=== PATIENT | female | born 1935 | race Caucasian/White ===

== ENCOUNTER 2017-01-09 23:09 | Inpatient (IN) | payer MEDICARE, OTHER ==
--- NOTE | ~2017-01-09 | IDS ---
Interim Discharge Summary [facility] [address] [place]. [address] NAME: KAYLIN VALENZUELA : 31 STATUS : ADM IN [facility]#: [id number] AGE: 81 ADM/REG DATE : 01/10/17 MR#: [id number] REPORT SERV DATE: 01/13/17 DICTATED BY: JAS COLBY DATE: 01/13/17 REPORT STATUS : Draft TRANSCRIBED BY: MODL DATE: 01/13/17 ADMISSION DATE: 01/10/2017 DISCHARGE DATE: CONSULTING PHYSICIAN: Dr. Law for outpatient manager software development, Dr. Marco Sinclair. INTERIM DIAGNOSES: 1. Acute hypoxic respiratory failure. 2. Bilateral pneumonia. 3. Acute on chronic systolic and diastolic congestive heart failure. 4. Hypertension. 5. Atrial fibrillation with AICD. 6. Mitral regurgitation. 7. Chronic kidney disease 3 with a history of left partial nephrectomy. 8. Diabetes. DIAGNOSTIC EXAMS: Echocardiogram showing mildly dilated left ventricle with severe systolic dysfunction. EF of 30%. Moderate diastolic dysfunction. Moderate left atrial enlargement. Normal right ventricular size and systolic function. Moderate MR. Mild pulmonary hypertension. Small pleural effusion. Chest x-ray showing minimal bibasilar atelectasis with trace bilateral pleural fluid. Small left pleural fluid was also seen. CAT scan of the chest showing dense patchy consolidation within the lower lobes of both lungs, right worse than the left, likely representing bilateral pneumonia. Ground-glass nodule in the medium right lung apex measuring up to 11 x 11 mm similar in appearance dating back to 05/02/2011. Suggest followup CT scan of the chest in 12 months for further evaluation. Status post partial left nephrectomy with questionable increased nodular fullness along the posterior margin of the left kidney at the nephrectomy site since 2010 exam measuring up to 14 x 27 mm. Suspect this may represent scar tissue or fat necrosis. However, suggest further evaluation and a followup, dynamic enhanced CT or MRI. Evidence of old granulomatous disease involving mediastinal and hilar lymph nodes as well as liver and spleen. Stable cardiomegaly with AICD in place. HOSPITAL COURSE: Please refer to the H and P done by Dr. Marshall Brewer dated on 01/10/2017. Briefly, this is an 81-year-old female, who comes in with cough and shortness of breath. The patient has a history of CHF, AFib, CKD, diabetes, and was exposed to her son with respiratory infection. Two days prior to admission, the patient had increase in dyspnea on exertion, productive cough, increasing weakness, decreased p.o. intake, and decreased ambulation. The patient was then brought to the emergency room and was found to have bilateral pneumonia. She was started on empiric antibiotics and hydrated, and the creatinine was initially elevated, it was slowly going down, and she looked a little bit better afterwards. However, she went into an acute respiratory failure and was found to have fluid overload. She was then placed on a Bumex drip where she got a lot of urine output out and she looked better again. The patient is now on a low-dose of Lasix and the Interim Discharge Summary [address] [place]. [address] NAME: KAYLIN VALENZUELA : 31 STATUS : ADM IN [facility]#: [id number] AGE: 81 ADM/REG DATE : 01/10/17 MR#: [id number] REPORT SERV DATE: 01/13/17 DICTATED BY: JAS COLBY. DATE: 01/13/17 REPORT STATUS : Draft TRANSCRIBED BY: PAULINA DATE: 01/13/17 family wanted Cardiology involve. Dr. Law was covering for Dr. Sinclair, saw the patient, and agreed with our management for now. The patient will be continuing the antibiotics and diuresis and hopefully she gets improved. The patient and family expressed their wishes that she is a DNR and DNI. A partner of [facility] will be following up the patient starting Saturday. ELOISE/PAULINA Jas Colby M.D. / [id number] CC: Kaylie Melgar NP
--- NOTE | ~2017-01-09 | CN ---
Consultation Report [facility] [address] [place]. [address] NAME: KAYLIN VALENZUELA : 33 STATUS : ADM IN PAT#: [id number] AGE: 81 ADM/REG DATE : 01/10/17 MR#: [id number] REPORT SERV DATE: 01/13/17 DICTATED BY: EVANGELISTA LAW DATE: 01/13/17 REPORT STATUS : Draft TRANSCRIBED BY: MODL DATE: 01/13/17 CARDIOLOGY CONSULTATION DATE OF CONSULTATION: HISTORY OF PRESENT ILLNESS: This 81-year-old white female, nonsmoker, lives with her son and family noticed that she was quite short of breath with severe cough. Workup here has revealed bilateral pneumonia, on proper therapy. She has chronic shortness of breath at home with an ejection fraction of only 30% associated with severe mitral regurgitation, not amenable to intervention. She also has chronic kidney disease being followed by Dr. Maddox, her regular modern and contemporary art curator is Dr. Marco Sinclair. She is a diabetic and has a history of tremor primarily in her left hand. Back in 2008, she had a left renal cell carcinoma, treated with partial nephrectomy. She has also had breast cancer with surgical resection. Because of poor left ventricular function, she had AICD placement and is pacing intermittently. She has had a history of sepsis due to pyelonephritis, in the past, as well. FAMILY HISTORY: Positive for heart disease. ALLERGIES: THERE ARE NO KNOWN ALLERGIES TO MEDICATIONS. SOCIAL HISTORY: She has had five children, three are still living. HOME MEDICATIONS: Have included Tylenol, albuterol, amiodarone, aspirin, Tessalon Perles, furosemide, insulin for her type 2 diabetes mellitus, lisinopril, simvastatin, spironolactone, and her warfarin. She has a history of atrial fibrillation and her INR today on warfarin is 2.2. At the present time, other than some intermittent cough, she is not overly short of breath and not orthopneic. Her edema has now gone, according to her family. She was edematous at home. She has no chest pain. Echocardiogram this admission shows an ejection fraction of only 30% with severe systolic dysfunction and moderate mitral regurgitation of a Jovita IIIB type, mild pulmonary hypertension was noted. BUN 32, creatinine 1.28. White blood cell count now 9000, hematocrit 37%, platelet count 118,000. She has had no recent stroke or TIA symptoms and has had no syncope. REVIEW OF SYSTEMS: Otherwise negative. PHYSICAL EXAMINATION: VITAL SIGNS: Show blood pressure of 110/70. HEENT: Head is normocephalic. Eyes, PERRLA. Nose has no epistaxis. SKIN: Clear of ulcerations. She does have acrocyanosis of her fingertips and toes with a saturation on oxygen of 90%. Consultation Report [address] [place]. [address] NAME: KAYLIN VALENZUELA : 33 STATUS : ADM IN PAT#: [id number] AGE: 81 ADM/REG DATE : 01/10/17 MR#: [id number] REPORT SERV DATE: 01/13/17 DICTATED BY: EVANGELISTA LAW DATE: 01/13/17 REPORT STATUS : Draft TRANSCRIBED BY: PAULINA DATE: 01/13/17 NECK: Supple. CHEST: Has a few rales in the right base. Left lung is fairly clear. HEART: Has slightly irregular rhythm. Variable S1. Normal S2. No S3 gallop is heard. There is a grade 1/6 systolic murmur at the lower left sternal border. ABDOMEN: Overweight. No hepatosplenomegaly. EXTREMITIES: Has no clubbing, edema, or cyanosis. NEUROLOGIC: Intact. She is oriented to time, place, and person. DNR status is noted. CLINICAL IMPRESSIONS: 1. Bilateral pneumonia. 2. Mitral regurgitation-at least moderate. 3. Poor left ventricular systolic function with an ejection fraction in the 30% range and poor perfusion. 4. DO NOT RESUSCITATE status noted. 5. History of chronic kidney disease. 6. Status post left partial nephrectomy for cancer. 7. History of breast cancer. 8. Status post AICD placement. 9. Atrial fibrillation with INR therapeutic. RECOMMENDATIONS: 1. Agree with management as outlined by the Hospitalist Service. 2. I will notify Dr. Sinclair of her admission in the morning. Her prognosis is quite poor. RB/PAULINA Evangelista Law M.D. / [id number] CC: Kaylie Melgar VICKY L
--- NOTE | ~2017-01-09 | HP ---
History And Physical [address] [place]. [address] NAME: KAYLIN VALENZUELA : 33 STATUS : ADM Tonja PAT#: [id number] AGE: 81 ADM/REG DATE : 01/10/17 MR#: [id number] REPORT SERV DATE: 01/10/17 DICTATED BY: ALEXSANDER GALLARDO DATE: 01/10/17 REPORT STATUS : Draft TRANSCRIBED BY: MODL DATE: 01/10/17 DATE OF ADMISSION: 01/10/2017 CHIEF COMPLAINT: An 81-year-old female, presenting with cough and shortness of breath. HISTORY OF PRESENT ILLNESS: The patient's history was obtained through careful interview with the patient and daughter, Lindsey, coupled with review of [facility] and [facility] medical records. The patient states that for "a couple days" she has been having an increasing cough that has been nonproductive and shortness of breath characterized by dyspnea on exertion. It turns out that her son was sick with a similar illness about a week ago, and it resolved within a few days, but now the patient's illness has only worsened over these last few days. She describes her cough is worse at night making it difficult to sleep, but she denies any specific orthopnea. She has had increasing weakness. She has had subjective fevers and chills. Her abdomen has been sore because of coughing, but otherwise there are no pain complaints. No chest pain. No headache. No back pain. REVIEW OF SYSTEMS: Otherwise, a 14-point review of systems was obtained and was negative. PAST MEDICAL HISTORY: 1. Atrial fibrillation. 2. Chronic kidney disease, stage 3. Baseline creatinine of 1.3. Followed by Dr. Maddox. 3. Systolic congestive heart failure. Ejection fraction 30%. Followed by Dr. Marco Sinclair, accounts adjustable clerk. 4. Hypertension. 5. Diabetes. 6. Left hand tremor. 7. Left renal cell carcinoma status post surgery in 2008. 8. Breast cancer in 2014 status post surgical resection. 9. AICD placement. 10.Nephrolithiasis with stent placement under the care Dr. Hunter. 11.Mitral regurgitation, but declined surgery. 12.Pyelonephritis with sepsis in 2008. PAST SURGICAL HISTORY: 1. Partial left nephrectomy for renal cell carcinoma. 2. Right breast lumpectomy. 3. Right parathyroidectomy. 4. AICD placement. History And Physical [address] [place]. [address] NAME: KAYLIN VALENZUELA : 33 STATUS : ADM Tonja PAT#: [id number] AGE: 81 ADM/REG DATE : 01/10/17 MR#: [id number] REPORT SERV DATE: 01/10/17 DICTATED BY: ALEXSANDER GALLARDO DATE: 01/10/17 REPORT STATUS : Draft TRANSCRIBED BY: PAULINA DATE: 01/10/17 ALLERGIES: NO KNOWN DRUG ALLERGIES. SOCIAL HISTORY: No tobacco abuse. No alcohol abuse. Lives with son. Has been a for 18 years. Has a total of three children. FAMILY HISTORY: Mother with heart disease, of breast cancer at 42 years of age. Father in an accident. Sister of breast cancer at 58 years of age. She has two sons of Duchenne's muscular dystrophy. CURRENT MEDICATIONS: 1. Tylenol. 2. Albuterol inhaler. 3. Amiodarone 100 mg p.o. daily. 4. Aspirin 81 mg p.o. daily. 5. Tessalon Perles. 6. Calcium. 7. Vitamin D. 8. Lasix 20 mg p.o. daily. 9. Humalog 75/25, 25 units subcutaneous at breakfast and 14 units at supper. 10.Humalog 5 units before each meal. 11.Lisinopril 5 mg p.o. daily. 12.Zocor 20 mg p.o. daily. 13.Aldactone 25 mg p.o. daily. 14.Coumadin 3 mg p.o. daily. PHYSICAL EXAMINATION: VITAL SIGNS: Temperature 100.7, pulse 81, blood pressure 145/42, respiratory rate 19, and O2 saturation 93% on room air. GENERAL: An ill-appearing female, in evidence of some distress secondary to cough and shortness of breath. HEENT: Pupils equal, round, and reactive to light. No conjunctival pallor. No scleral icterus. Nares are patent. Oropharynx is clear of obstruction. Moist mucous membranes. NECK: Trachea midline. No thyromegaly. LYMPH: No cervical lymphadenopathy. No supraclavicular lymphadenopathy. RESPIRATORY: The patient has definite wet rales at the base of lungs. No significant wheezes. No upper respiratory rhonchi. A labored respiratory effort. CARDIOVASCULAR: Regular rate and rhythm. No murmurs, rubs, or gallops. No current extremity edema is appreciated though. ABDOMEN: Soft, nontender, and nondistended. Normal bowel sounds auscultated throughout. No hepatosplenomegaly. DERMATOLOGICAL: Warm and dry extremities. No pallor. No cyanosis. PSYCHIATRIC: Blunted affect. Claims to be in a good mood. Alert and oriented x3. LABORATORY DATA: Brain natriuretic peptide 337. Procalcitonin 0.68. Lactic acid 1.3. Influenza negative. History And Physical [address] [address] NAME: KAYLIN VALENZUELA : 31 STATUS : ADM Tonja PAT#: [id number] AGE: 81 ADM/REG DATE : 01/10/17 MR#: [id number] REPORT SERV DATE: 01/10/17 DICTATED BY: ALEXSANDER GALLARDO DATE: 01/10/17 REPORT STATUS : Draft TRANSCRIBED BY: MODKaron DATE: 01/10/17 Liver enzymes within normal limits. Urinalysis negative for infection. White blood cell count 9.9, hemoglobin 13, hematocrit 39, and platelets 112. Sodium 138, potassium 4.5, chloride 106, bicarb 25, BUN 27, creatinine 1.68, and glucose 190. STUDIES: Chest x-ray by my own evaluation shows possible left lower lung disease?, possible mild pulmonary edema changes, but it is difficult to interpret x-ray and there may be no significant abnormalities at all ? ASSESSMENT AND PLAN: 1. Acute bronchitis versus pneumonia. Fever of 100.7 with borderline procalcitonin. I would like to try IV antibiotics for now. Check a CT scan of the chest, check procalcitonin or follow procalcitonin. 2. Systolic congestive heart failure exacerbation. Significant wet rales by exam. Check a CT scan of the chest. Try IV diuretic. Recheck an echocardiogram with history of ejection fraction 30%. History of mitral regurgitation as well. 3. Chronic kidney disease, stage 3. Baseline creatinine of 1.3. 4. Diabetes. Check hemoglobin A1c. Place on sliding scale insulin. 5. Automatic implantable cardioverter-defibrillator. We will interrogate. RANJANA/PAULINA Alexsander Gallardo M.D. / [id number] CC: Kaylie Melgar NP William Warren, M.D.
--- NOTE | ~2017-01-09 | DS ---
Discharge Summary [address] [place]. [address] NAME: KAYLIN VALENZUELA : 33 STATUS : DIS IN PAT#: [id number] AGE: 81 ADM/REG DATE : 01/10/17 MR#: [id number] REPORT SERV DATE: 01/20/17 DICTATED BY: RICHARDSON MISTRY DATE: 01/20/17 REPORT STATUS : Draft TRANSCRIBED BY: MODL DATE: 01/20/17 ADMISSION DATE: 01/10/2017 DISCHARGE DATE: 01/20/2017 DISCHARGE DIAGNOSES: 1. Bilateral pneumonia. 2. Acute hypoxic respiratory failure. 3. Acute on chronic systolic and diastolic heart failure. Ejection fraction of 30%. Some moderate mitral regurgitation, moderate diastolic dysfunction, and moderate pulmonary hypertension. 4. Diabetes type 2. Hemoglobin A1c of 7.9. 5. Chronic atrial fibrillation, on chronic Coumadin therapy. Most recent INR 2.6. 6. Debility and falls. 7. Hypoalbuminemia, most recently 1.9. 8. History of hypertension. 9. History of chronic kidney disease stage 3. 10.History of AICD. DISCHARGE MEDICATIONS: Aspirin 81 mg daily; Pacerone 100 mg daily; Tessalon 100 mg every eight hours p.r.n. for cough; calcium with vitamin D 600 mg three tabs a day each with meals; Colace 100 mg twice a day; Humalog 75/25, 25 units at breakfast and Humalog 75/25, 14 units at supper; Humalog insulin lispro 5 units before lunch; lisinopril 5 mg daily; Remeron 15 mg at bedtime; Zocor 20 mg at bedtime; Aldactone 25 mg daily; torsemide 20 mg daily; Coumadin 3 mg at bedtime; Tylenol 1000 mg daily p.r.n. for headache; albuterol; ProAir inhaler two puffs p.r.n. for shortness of breath every four to six hours. HISTORY OF PRESENT ILLNESS: This is a pleasant 81-year-old white female who presented with cough and shortness of breath. Please see initial H and P of Dr. Marshall Brewer. This patient was admitted to the Hospitalist Service for further evaluation and treatment. She was started on empiric antibiotic therapy. Lab work was ordered and followed and also given IV diuresis. Please also see the interim discharge summary of Dr. Nicole as this discharge summary will cover the dates of 01/14/2017 until 01/20/2017. HOSPITAL COURSE: The patient continued on her antibiotic therapy, continued on her diuresis, symptomatically continued to improve, shortness of breath began to get better as well. Her creatinine remained stable with increasing of her diuresis; however, in review of all her labs, it was noted she was significantly low on her albumin, so a switch was made from Lasix to torsemide for overall better diuresis. She was able to be switched to p.o. antibiotics as her Rocephin and Zithromax were stopped on 01/16/2017. Her chest x-rays improved as well. She was seen by Physical Therapy and Occupational Therapy who recommended inpatient rehab, and she was chosen for [facility]. Her O2 has been weaned. She has been given Ensure with her trays, and Remeron has been added to her overall regimen to help with appetite stimulation. The patient continued to improve, was felt safe for discharge to [facility] on 01/20/2017 with the above medication regimen. She will need to have her INR rechecked in the a.m. I have updated the patient and patient's daughter at bedside. Questions were answered extensively. They are in agreement with the overall plan going Discharge Summary [address] [address] NAME: KAYLIN VALENZUELA : 31 STATUS : DIS IN PAT#: [id number] AGE: 81 ADM/REG DATE : 01/10/17 MR#: [id number] REPORT SERV DATE: 01/20/17 DICTATED BY: RICHARDSON MISTRY DATE: 01/20/17 REPORT STATUS : Draft TRANSCRIBED BY: MODKaron DATE: 01/20/17 forward. Please note, greater than 30 minutes were spent on this discharge for medication teaching, discharge planning, and further disposition. ALEX/PAULINA Richardson Mistry NP / [id number] CC: Kaylie Melgar VICKY L
[~2017-01-09 23:09] MED LIST: ACET500CAP PO; ASA; ASAB PO; C2 PO; C25 PO; C5 PO; CEFT5 PO; CORDARONE PO; COREG12 PO; COREG3 PO; COUMADIN3 MG PO; INSNOV7030 SC; IRON325 MG PO; L20 PO; L40 PO; NOVOLOG SC; NOVOLOG SQ; NOVOLOGMIX SC; NOVOPEN SC; NOVOPENMIX SC; PACERONE200 MG PO; PRIN5 PO; SPIRO25 PO; VITAMIN D31000 UNIT PO; VITD PO; ZOCOR20 PO; ZOCOR40 PO
[2017-01-10 00:11] LABS: BASOPHILS 0.2 %; BASOPHILS ABSOLUTE 0.02 10/3/uL (0.0-0.16); EOSINOPHILS 0 %; ER CBC TAT 0 Hrs 00 Mins; HEMATOCRIT 38.9 % (36.0-48.0); HEMOGLOBIN 12.9 g/dL (12.0-16.0); IMMATURE GRANULOCYTES 0.2 %; IMMATURE GRANULOCYTES ABSOLUTE 0.02 10/3/uL (0.0-0.11); LYMPHOCYTES ABSOLUTE 1.09 10/3/uL (0.67-4.30); MANUAL DIFF NO %; MEAN CORPUS HGB CONC 33.2 g/dL (32.0-36.0); MEAN CORPUSCULAR HEMOGLOB 28.5 pg (26.0-34.0); MEAN CORPUSCULAR VOLUME 85.9 fL (80-100); MEAN PLATELET VOLUME 11.6 fL (9.2-13.0); MONOCYTES 11.4 %; MONOCYTES ABSOLUTE 1.13 10/3/uL (0.21-1.20); NEUTROPHILS 77.2 %; NEUTROPHILS ABSOLUTE 7.63 10/3/uL (2.02-8.40); PLATELET COUNT 112 10/3/uL (150-400); RED CELL COUNT 4.53 10/6/uL (4.0-5.6); WHITE BLOOD CELLS 9.9 10/3/uL (4.5-10.5)
[2017-01-10 00:25] LABS: INFLUENZA A SCREEN NEGATIVE (NEGATIVE); INFLUENZA B SCREEN NEGATIVE (NEGATIVE)
[2017-01-10 00:37] LABS: BUN (BLOOD UREA NITROGEN) 27 MG/DL (6-23); CHLORIDE, SERUM 106 MMOL/L (96-112); CO2 (CARBON DIOXIDE) 25 MMOL/L (24-34); CREATININE 1.68 MG/DL (0.55-1.02); GFR AFRICAN AMERICAN 32 ML/MIN (>=60); GFR NON AFRICAN AMERICAN 28 ML/MIN (>=60); POTASSIUM, SERUM 4.5 MMOL/L (3.5-5.3); SODIUM, SERUM 138 MMOL/L (135-148)
[2017-01-10 00:38] LABS: A/G RATIO 0.8 (0.7-1.9); ALBUMIN 3.1 G/DL (3.5-5.0); ALKALINE PHOSPHATASE 58 U/L (45-117); CALCIUM, SERUM 8.8 MG/DL (8.5-10.4); GLOBULIN 3.9 G/DL (2.5-4.1); GLUCOSE, SERUM 190 MG/DL (60-99); LACTATE 1.3 MMOL/L (0.3-2.4); SGOT(AST) 28 U/L (5-40); SGPT(ALT) 25 U/L (5-65); TOTAL BILIRUBIN 0.7 MG/DL (0-1.2)
[2017-01-10 02:12] LABS: PROCALCITONIN 0.68 ng/mL (<0.5)
[2017-01-10 02:35] LABS: ASCORBIC ACID (UR NOT ORDER) NEG (NEG); BILIRUBIN, URINE NEGATIVE (NEG); ER URINALYSIS TAT 0 Hrs 00 Mins; KETONE, URINE TRACE MG/DL (NEG); LEUKOCYTE ESTERASE(NOT OR NEG (NEG); NITRITE (URINE) NEG (NEG); WBC (NOT ORDERED) (RFLEX) 3 (0-5)
[2017-01-10] MEDS ORDERED: L20 PO (02:49)
[2017-01-10] MEDS ORDERED: SPIRO25 PO (02:49)
[2017-01-10] MEDS ORDERED: PRIN5 PO (02:49)
[2017-01-10] MEDS ORDERED: HUMAMIXPEN SC ×2 (02:49→02:52)
[2017-01-10] MEDS ORDERED: PACERONE100 MG PO (02:50)
[2017-01-10] MEDS ORDERED: ASAB PO (02:50)
[2017-01-10] MEDS ORDERED: CALTRA600D PO (02:50)
[2017-01-10] MEDS ORDERED: PROAIR HFA INH (02:50)
[2017-01-10] MEDS ORDERED: HUMALOGPEN SC (02:51)
[2017-01-10] MEDS ORDERED: ACET500CAP PO (02:51)
[2017-01-10] MEDS ORDERED: ZOCOR20 PO (02:52)
[2017-01-10] MEDS ORDERED: COUMADIN3 MG PO (02:52)
[2017-01-10] MEDS ORDERED: TESS PO (02:55)
[2017-01-10 06:36] LABS: INTERNATIONAL NORMAL RATI 1.8 UNITS (-)
[2017-01-10 06:37] LABS: PROTIME (NOT ORD) 20.3 SEC (12.0-14.5)
[2017-01-11 05:26] LABS: PROTIME (NOT ORD) 22.5 SEC (12.0-14.5)
[2017-01-11 05:31] LABS: BUN (BLOOD UREA NITROGEN) 28 MG/DL (6-23); CALCIUM, SERUM 8.2 MG/DL (8.5-10.4); CHLORIDE, SERUM 111 MMOL/L (96-112); CO2 (CARBON DIOXIDE) 21 MMOL/L (24-34); CREATININE 1.31 MG/DL (0.55-1.02); GFR AFRICAN AMERICAN 44 ML/MIN (>=60); GFR NON AFRICAN AMERICAN 38 ML/MIN (>=60); POTASSIUM, SERUM 4.5 MMOL/L (3.5-5.3); SODIUM, SERUM 141 MMOL/L (135-148)
[2017-01-11 05:52] LABS: GLUCOSE, SERUM 138 MG/DL (60-99)
[2017-01-11 06:29] LABS: BASOPHILS 0.3 %; BASOPHILS ABSOLUTE 0.02 10/3/uL (0.0-0.16); EOSINOPHILS 0.1 %; EOSINOPHILS ABSOLUTE 0.01 10/3/uL (0.0-0.53); HEMATOCRIT 35.2 % (36.0-48.0); HEMOGLOBIN 11.7 g/dL (12.0-16.0); LYMPHOCYTES 16.5 %; MANUAL DIFF NO %; MEAN CORPUS HGB CONC 33.2 g/dL (32.0-36.0); MEAN CORPUSCULAR HEMOGLOB 28.2 pg (26.0-34.0); MEAN CORPUSCULAR VOLUME 84.8 fL (80-100); MEAN PLATELET VOLUME 12.4 fL (9.2-13.0); MONOCYTES 4.8 %; MONOCYTES ABSOLUTE 0.35 10/3/uL (0.21-1.20); NEUTROPHILS 78.3 %; NEUTROPHILS ABSOLUTE 5.69 10/3/uL (2.02-8.40); PLATELET COUNT 103 10/3/uL (150-400); RBC DISTRIBUTION WIDTH 15.4 % (12.0-16.0); RED CELL COUNT 4.15 10/6/uL (4.0-5.6); WHITE BLOOD CELLS 7.3 10/3/uL (4.5-10.5)
[2017-01-11 19:28] LABS: INSTRUMENT SERIAL # 11843
[2017-01-11 19:29] LABS: ALLENS TEST Pos; BE (BASE EXCESS) -7.9 MEQ/L (0 +/- 2.5); CARBOXYHEMOGLOBIN 0.3 % (0-3); DEVICE NRB; HCO3 (ACTUAL BICARBONATE) 16.9 MEQ/L (23-27); HEMOBLOGIN CONTENT 13.3 G/DL (12-16); METHEMOGLOBIN 0.4 % (0-3); O2 CONTENT 18.3 VOL% (18-24); OPERATOR ID 33214; PCO2 (CO2 TENSION) 33 MMHG (35-45); PO2 (O2 TENSION) 115 MMHG (79-93); SAMPLE Arterial; pH 7.33 (7.37-7.43)
[2017-01-12 05:47] LABS: BASOPHILS 0.2 %; BASOPHILS ABSOLUTE 0.02 10/3/uL (0.0-0.16); EOSINOPHILS 0 %; HEMATOCRIT 37.4 % (36.0-48.0); HEMOGLOBIN 12.2 g/dL (12.0-16.0); IMMATURE GRANULOCYTES 0.2 %; IMMATURE GRANULOCYTES ABSOLUTE 0.02 10/3/uL (0.0-0.11); LYMPHOCYTES 10.6 %; LYMPHOCYTES ABSOLUTE 0.98 10/3/uL (0.67-4.30); MEAN CORPUS HGB CONC 32.6 g/dL (32.0-36.0); MEAN CORPUSCULAR HEMOGLOB 28.3 pg (26.0-34.0); MEAN CORPUSCULAR VOLUME 86.8 fL (80-100); MEAN PLATELET VOLUME 12.5 fL (9.2-13.0); MONOCYTES 6.8 %; MONOCYTES ABSOLUTE 0.63 10/3/uL (0.21-1.20); NEUTROPHILS 82.2 %; NEUTROPHILS ABSOLUTE 7.62 10/3/uL (2.02-8.40); PLATELET COUNT 118 10/3/uL (150-400); RBC DISTRIBUTION WIDTH 15.4 % (12.0-16.0); RED CELL COUNT 4.31 10/6/uL (4.0-5.6); WHITE BLOOD CELLS 9.3 10/3/uL (4.5-10.5)
[2017-01-12 05:49] LABS: MANUAL DIFF NO %
[2017-01-12 05:51] LABS: INTERNATIONAL NORMAL RATI 2.2 UNITS (-); PROTIME (NOT ORD) 23.9 SEC (12.0-14.5)
[2017-01-12 05:59] LABS: BUN (BLOOD UREA NITROGEN) 32 MG/DL (6-23); CALCIUM, SERUM 8.7 MG/DL (8.5-10.4); CHLORIDE, SERUM 108 MMOL/L (96-112); CO2 (CARBON DIOXIDE) 19 MMOL/L (24-34); CREATININE 1.28 MG/DL (0.55-1.02); GFR AFRICAN AMERICAN 45 ML/MIN (>=60); GFR NON AFRICAN AMERICAN 39 ML/MIN (>=60); GLUCOSE, SERUM 211 MG/DL (60-99); POTASSIUM, SERUM 5.3 MMOL/L (3.5-5.3); SODIUM, SERUM 138 MMOL/L (135-148)
[2017-01-12 07:52] LABS: PLATELET ESTIMATE SLT DEC (ADEQUATE)
[2017-01-12 07:53] LABS: POLYCHROMASIA 1+ (2-5/OIF) (0-1/OIF)
[2017-01-13 07:25] LABS: BASOPHILS 0.2 %; BASOPHILS ABSOLUTE 0.02 10/3/uL (0.0-0.16); EOSINOPHILS 0 %; HEMATOCRIT 35.5 % (36.0-48.0); HEMOGLOBIN 11.8 g/dL (12.0-16.0); IMMATURE GRANULOCYTES 0.3 %; IMMATURE GRANULOCYTES ABSOLUTE 0.03 10/3/uL (0.0-0.11); INTERNATIONAL NORMAL RATI 2.4 UNITS (-); LYMPHOCYTES 12.3 %; LYMPHOCYTES ABSOLUTE 1.29 10/3/uL (0.67-4.30); MANUAL DIFF NO %; MEAN CORPUS HGB CONC 33.2 g/dL (32.0-36.0); MEAN CORPUSCULAR HEMOGLOB 28.4 pg (26.0-34.0); MEAN CORPUSCULAR VOLUME 85.3 fL (80-100); MEAN PLATELET VOLUME 11.9 fL (9.2-13.0); MONOCYTES 11.7 %; MONOCYTES ABSOLUTE 1.23 10/3/uL (0.21-1.20); NEUTROPHILS 75.5 %; NEUTROPHILS ABSOLUTE 7.93 10/3/uL (2.02-8.40); PLATELET COUNT 146 10/3/uL (150-400); PROTIME (NOT ORD) 26.3 SEC (12.0-14.5); RBC DISTRIBUTION WIDTH 15.5 % (12.0-16.0); RED CELL COUNT 4.16 10/6/uL (4.0-5.6); WHITE BLOOD CELLS 10.5 10/3/uL (4.5-10.5)
[2017-01-13 07:37] LABS: BUN (BLOOD UREA NITROGEN) 42 MG/DL (6-23); CALCIUM, SERUM 8.5 MG/DL (8.5-10.4); CHLORIDE, SERUM 108 MMOL/L (96-112); CO2 (CARBON DIOXIDE) 23 MMOL/L (24-34); CREATININE 1.35 MG/DL (0.55-1.02); GFR AFRICAN AMERICAN 42 ML/MIN (>=60); GFR NON AFRICAN AMERICAN 36 ML/MIN (>=60); GLUCOSE, SERUM 176 MG/DL (60-99); POTASSIUM, SERUM 4.6 MMOL/L (3.5-5.3); SODIUM, SERUM 139 MMOL/L (135-148)
[2017-01-14 05:56] LABS: INTERNATIONAL NORMAL RATI 3.4 UNITS (-)
[2017-01-14 05:58] LABS: PROTIME (NOT ORD) 34.3 SEC (12.0-14.5)
[2017-01-14 06:01] LABS: BUN (BLOOD UREA NITROGEN) 41 MG/DL (6-23); CALCIUM, SERUM 8.5 MG/DL (8.5-10.4); CHLORIDE, SERUM 110 MMOL/L (96-112); CO2 (CARBON DIOXIDE) 25 MMOL/L (24-34); CREATININE 1.23 MG/DL (0.55-1.02); GFR AFRICAN AMERICAN 47 ML/MIN (>=60); GFR NON AFRICAN AMERICAN 41 ML/MIN (>=60); GLUCOSE, SERUM 158 MG/DL (60-99); POTASSIUM, SERUM 4.7 MMOL/L (3.5-5.3); SODIUM, SERUM 141 MMOL/L (135-148)
[2017-01-15 05:05] LABS: INTERNATIONAL NORMAL RATI 3.7 UNITS (-)
[2017-01-15 05:08] LABS: BUN (BLOOD UREA NITROGEN) 41 MG/DL (6-23); CALCIUM, SERUM 8.6 MG/DL (8.5-10.4); CHLORIDE, SERUM 108 MMOL/L (96-112); CO2 (CARBON DIOXIDE) 28 MMOL/L (24-34); CREATININE 1.14 MG/DL (0.55-1.02); GFR AFRICAN AMERICAN 51 ML/MIN (>=60); GFR NON AFRICAN AMERICAN 44 ML/MIN (>=60); GLUCOSE, SERUM 165 MG/DL (60-99); POTASSIUM, SERUM 4.6 MMOL/L (3.5-5.3); SODIUM, SERUM 140 MMOL/L (135-148)
[2017-01-15 05:30] LABS: BASOPHILS 0.2 %; BASOPHILS ABSOLUTE 0.02 10/3/uL (0.0-0.16); EOSINOPHILS 0.3 %; EOSINOPHILS ABSOLUTE 0.03 10/3/uL (0.0-0.53); HEMATOCRIT 35.7 % (36.0-48.0); HEMOGLOBIN 11.5 g/dL (12.0-16.0); IMMATURE GRANULOCYTES 0.8 %; IMMATURE GRANULOCYTES ABSOLUTE 0.07 10/3/uL (0.0-0.11); LYMPHOCYTES 15.3 %; LYMPHOCYTES ABSOLUTE 1.39 10/3/uL (0.67-4.30); MEAN CORPUS HGB CONC 32.2 g/dL (32.0-36.0); MEAN CORPUSCULAR HEMOGLOB 28.1 pg (26.0-34.0); MEAN CORPUSCULAR VOLUME 87.3 fL (80-100); MEAN PLATELET VOLUME 12.2 fL (9.2-13.0); MONOCYTES 12.1 %; NEUTROPHILS 71.3 %; NEUTROPHILS ABSOLUTE 6.47 10/3/uL (2.02-8.40); RBC DISTRIBUTION WIDTH 15.5 % (12.0-16.0); RED CELL COUNT 4.09 10/6/uL (4.0-5.6); WHITE BLOOD CELLS 9.1 10/3/uL (4.5-10.5)
[2017-01-15 05:34] LABS: MANUAL DIFF NO %; PLATELET COUNT 195 10/3/uL (150-400)
[2017-01-16 05:42] LABS: PROTIME (NOT ORD) 38.7 SEC (12.0-14.5)
[2017-01-16 05:56] LABS: BUN (BLOOD UREA NITROGEN) 39 MG/DL (6-23); CALCIUM, SERUM 8.3 MG/DL (8.5-10.4); CHLORIDE, SERUM 107 MMOL/L (96-112); CO2 (CARBON DIOXIDE) 31 MMOL/L (24-34); CREATININE 1.17 MG/DL (0.55-1.02); GFR AFRICAN AMERICAN 50 ML/MIN (>=60); GFR NON AFRICAN AMERICAN 43 ML/MIN (>=60); GLUCOSE, SERUM 157 MG/DL (60-99); SODIUM, SERUM 143 MMOL/L (135-148)
[2017-01-17 06:52] LABS: CALCIUM, SERUM 8.2 MG/DL (8.5-10.4); CHLORIDE, SERUM 105 MMOL/L (96-112); CO2 (CARBON DIOXIDE) 30 MMOL/L (24-34); CREATININE 1.12 MG/DL (0.55-1.02); GFR AFRICAN AMERICAN 53 ML/MIN (>=60); GFR NON AFRICAN AMERICAN 45 ML/MIN (>=60); INTERNATIONAL NORMAL RATI 4.5 UNITS (-); POTASSIUM, SERUM 3.9 MMOL/L (3.5-5.3); SODIUM, SERUM 143 MMOL/L (135-148)
[2017-01-17 06:53] LABS: PROTIME (NOT ORD) 42.3 SEC (12.0-14.5)
[2017-01-17 06:55] LABS: BUN (BLOOD UREA NITROGEN) 35 MG/DL (6-23); GLUCOSE, SERUM 209 MG/DL (60-99)
[2017-01-18 05:04] LABS: BASOPHILS 0.6 %; BASOPHILS ABSOLUTE 0.04 10/3/uL (0.0-0.16); EOSINOPHILS 3.4 %; EOSINOPHILS ABSOLUTE 0.23 10/3/uL (0.0-0.53); HEMATOCRIT 34.6 % (36.0-48.0); HEMOGLOBIN 11.2 g/dL (12.0-16.0); IMMATURE GRANULOCYTES 0.6 %; IMMATURE GRANULOCYTES ABSOLUTE 0.04 10/3/uL (0.0-0.11); LYMPHOCYTES 15.6 %; LYMPHOCYTES ABSOLUTE 1.06 10/3/uL (0.67-4.30); MEAN CORPUS HGB CONC 32.4 g/dL (32.0-36.0); MEAN CORPUSCULAR VOLUME 89.6 fL (80-100); MEAN PLATELET VOLUME 11.2 fL (9.2-13.0); MONOCYTES 8.7 %; MONOCYTES ABSOLUTE 0.59 10/3/uL (0.21-1.20); NEUTROPHILS 71.1 %; NEUTROPHILS ABSOLUTE 4.85 10/3/uL (2.02-8.40); PLATELET COUNT 245 10/3/uL (150-400); RBC DISTRIBUTION WIDTH 15.5 % (12.0-16.0); RED CELL COUNT 3.86 10/6/uL (4.0-5.6); WHITE BLOOD CELLS 6.8 10/3/uL (4.5-10.5)
[2017-01-18 05:05] LABS: INTERNATIONAL NORMAL RATI 4.7 UNITS (-); MANUAL DIFF NO %
[2017-01-18 05:06] LABS: PROTIME (NOT ORD) 43.6 SEC (12.0-14.5)
[2017-01-18 05:14] LABS: CALCIUM, SERUM 7.8 MG/DL (8.5-10.4); CHLORIDE, SERUM 109 MMOL/L (96-112); GFR AFRICAN AMERICAN 60 ML/MIN (>=60); GFR NON AFRICAN AMERICAN 52 ML/MIN (>=60); PHOSPHORUS, SERUM 2.2 MG/DL (2.5-4.5); POTASSIUM, SERUM 4.1 MMOL/L (3.5-5.3); SODIUM, SERUM 140 MMOL/L (135-148)
[2017-01-18 05:17] LABS: ALBUMIN 1.7 G/DL (3.5-5.0); BUN (BLOOD UREA NITROGEN) 31 MG/DL (6-23); CO2 (CARBON DIOXIDE) 25 MMOL/L (24-34); GLUCOSE, SERUM 133 MG/DL (60-99)
[2017-01-19 05:20] LABS: BASOPHILS 0.3 %; BASOPHILS ABSOLUTE 0.02 10/3/uL (0.0-0.16); EOSINOPHILS 3.2 %; EOSINOPHILS ABSOLUTE 0.25 10/3/uL (0.0-0.53); HEMOGLOBIN 11.2 g/dL (12.0-16.0); IMMATURE GRANULOCYTES 0.8 %; IMMATURE GRANULOCYTES ABSOLUTE 0.06 10/3/uL (0.0-0.11); LYMPHOCYTES 16.5 %; LYMPHOCYTES ABSOLUTE 1.28 10/3/uL (0.67-4.30); MEAN CORPUSCULAR HEMOGLOB 27.9 pg (26.0-34.0); MEAN CORPUSCULAR VOLUME 87.3 fL (80-100); MEAN PLATELET VOLUME 10.8 fL (9.2-13.0); MONOCYTES 8.6 %; MONOCYTES ABSOLUTE 0.67 10/3/uL (0.21-1.20); NEUTROPHILS 70.6 %; NEUTROPHILS ABSOLUTE 5.47 10/3/uL (2.02-8.40); PLATELET COUNT 309 10/3/uL (150-400); RBC DISTRIBUTION WIDTH 15.4 % (12.0-16.0); RED CELL COUNT 4.01 10/6/uL (4.0-5.6); WHITE BLOOD CELLS 7.8 10/3/uL (4.5-10.5)
[2017-01-19 05:23] LABS: MANUAL DIFF NO %
[2017-01-19 05:26] LABS: INTERNATIONAL NORMAL RATI 4.5 UNITS (-)
[2017-01-19 05:27] LABS: PROTIME (NOT ORD) 42.3 SEC (12.0-14.5)
[2017-01-19 05:32] LABS: ALBUMIN 1.9 G/DL (3.5-5.0); CALCIUM, SERUM 8.4 MG/DL (8.5-10.4); CHLORIDE, SERUM 104 MMOL/L (96-112); CREATININE 0.98 MG/DL (0.55-1.02); GFR AFRICAN AMERICAN 62 ML/MIN (>=60); GFR NON AFRICAN AMERICAN 53 ML/MIN (>=60); PHOSPHORUS, SERUM 2.4 MG/DL (2.5-4.5); POTASSIUM, SERUM 3.9 MMOL/L (3.5-5.3); SODIUM, SERUM 142 MMOL/L (135-148)
[2017-01-19 05:33] LABS: BUN (BLOOD UREA NITROGEN) 25 MG/DL (6-23); CO2 (CARBON DIOXIDE) 31 MMOL/L (24-34); GLUCOSE, SERUM 160 MG/DL (60-99)
[2017-01-20 05:09] LABS: BASOPHILS 0.3 %; BASOPHILS ABSOLUTE 0.02 10/3/uL (0.0-0.16); EOSINOPHILS 3.5 %; EOSINOPHILS ABSOLUTE 0.23 10/3/uL (0.0-0.53); HEMATOCRIT 35.2 % (36.0-48.0); HEMOGLOBIN 11.5 g/dL (12.0-16.0); IMMATURE GRANULOCYTES 1.1 %; IMMATURE GRANULOCYTES ABSOLUTE 0.07 10/3/uL (0.0-0.11); LYMPHOCYTES 22.6 %; LYMPHOCYTES ABSOLUTE 1.48 10/3/uL (0.67-4.30); MEAN CORPUS HGB CONC 32.7 g/dL (32.0-36.0); MEAN CORPUSCULAR HEMOGLOB 28.4 pg (26.0-34.0); MEAN CORPUSCULAR VOLUME 86.9 fL (80-100); MEAN PLATELET VOLUME 10.7 fL (9.2-13.0); MONOCYTES 9.9 %; MONOCYTES ABSOLUTE 0.65 10/3/uL (0.21-1.20); NEUTROPHILS 62.6 %; NEUTROPHILS ABSOLUTE 4.11 10/3/uL (2.02-8.40); PLATELET COUNT 296 10/3/uL (150-400); RBC DISTRIBUTION WIDTH 15.5 % (12.0-16.0); RED CELL COUNT 4.05 10/6/uL (4.0-5.6); WHITE BLOOD CELLS 6.6 10/3/uL (4.5-10.5)
[2017-01-20 05:10] LABS: MANUAL DIFF NO %
[2017-01-20 05:14] LABS: INTERNATIONAL NORMAL RATI 2.6 UNITS (-)
[2017-01-20 05:15] LABS: PROTIME (NOT ORD) 27.4 SEC (12.0-14.5)
[2017-01-20 05:16] LABS: BUN (BLOOD UREA NITROGEN) 23 MG/DL (6-23); CALCIUM, SERUM 8.7 MG/DL (8.5-10.4); CHLORIDE, SERUM 105 MMOL/L (96-112); CO2 (CARBON DIOXIDE) 29 MMOL/L (24-34); CREATININE 1.04 MG/DL (0.55-1.02); GFR AFRICAN AMERICAN 58 ML/MIN (>=60); GFR NON AFRICAN AMERICAN 50 ML/MIN (>=60); POTASSIUM, SERUM 3.6 MMOL/L (3.5-5.3); SODIUM, SERUM 140 MMOL/L (135-148)
[2017-01-20 05:17] LABS: GLUCOSE, SERUM 147 MG/DL (60-99)
== END 2017-01-20 14:55 | disposition home health service (06) | DRG 291 ==
LOC: ER 23:09 → 2SO 01-10 02:53
PROVIDERS: Emergency Medicine; Internal Medicine; Nurse Practitioner Family
DX: I50.23 Acute on chronic systolic (congestive) heart failure (principal); J18.9 Pneumonia, unspecified organism; J96.21 Acute and chronic respiratory failure with hypoxia; E11.22 Type 2 diabetes mellitus with diabetic chronic kidney disease; E88.09 Other disorders of plasma-protein metabolism, not elsewhere classified; I27.2 Other secondary pulmonary hypertension; N18.3 Chronic kidney disease, stage 3 (moderate); I13.0 Hypertensive heart and chronic kidney disease with heart failure and stage 1 through stage 4 chronic kidney disease, or unspecified chronic kidney disease; J20.9 Acute bronchitis, unspecified; I48.2 Chronic atrial fibrillation; R25.1 Tremor, unspecified; I34.0 Nonrheumatic mitral (valve) insufficiency; Z66 Do not resuscitate; Z85.3 Personal history of malignant neoplasm of breast; Z91.81 History of falling; Z79.4 Long term (current) use of insulin; Z85.528 Personal history of other malignant neoplasm of kidney; Z87.442 Personal history of urinary calculi; Z95.810 Presence of automatic (implantable) cardiac defibrillator; Z90.5 Acquired absence of kidney; Z82.49 Family history of ischemic heart disease and other diseases of the circulatory system
CPT/HCPCS: 36600; 71010; 71020; 71250; 80048; 80053; 80069; 81001; 82805; 82947; 82962; 83036; 83605; 83735; 83880; 84145; 85025; 85610; 87040; 87070; 87205; 87449; 87804; 93288; 94640; 97110-GP; 97162-GP; 99285; A9270-GY; C8929; G8978-CL-GP; G8979-CK-GP; J0456; J1940; J2405; Q9957